=== PATIENT | female | born 1960 | race Caucasian/White ===

== ENCOUNTER 2020-10-29 23:15 | Emergency (ER) | payer MEDICARE, OTHER ==
[~2020-10-29 23:15] MED LIST: SYNTHROID100 MCG PO
[2020-10-30] MEDS ORDERED: HYDROCODON-ACE1 EAC4 PO (01:06)
== END 2020-10-30 01:30 | disposition home or self-care (01) ==
LOC: ER1 23:15
DX: S42.021A Displaced fracture of shaft of right clavicle, initial encounter for closed fracture (principal); F17.210 Nicotine dependence, cigarettes, uncomplicated; Z85.118 Personal history of other malignant neoplasm of bronchus and lung; W06.XXXA Fall from bed, initial encounter; Y92.009 Unspecified place in unspecified non-institutional (private) residence as the place of occurrence of the external cause
CPT/HCPCS: 73030; 99283

== ENCOUNTER → 2021-06-16 | Outpatient (CLI) | payer MEDICARE, OTHER ==
[~2021-06-16] VITALS: Ht 172.7 cm; Wt 75.3 kg
[~2021-06-16] MED LIST changes: +HYDROCODON-ACE1 EAC4 PO
== END ==
LOC: OPSV 08:32
DX: G70.80 Lambert-Eaton syndrome, unspecified (principal)
CPT/HCPCS: 96365; 96366; 96375; J1568; J2920

== ENCOUNTER → 2021-06-17 | Outpatient (CLI) | payer MEDICARE, OTHER ==
[~2021-06-17] VITALS: Ht 172.7 cm; Wt 75.3 kg
== END ==
LOC: OPSV 08:11
DX: G70.80 Lambert-Eaton syndrome, unspecified (principal)
CPT/HCPCS: 96365; 96366; J1568; J2920

== ENCOUNTER → 2021-06-18 | Outpatient (CLI) | payer MEDICARE, OTHER ==
[~2021-06-18] VITALS: Ht 172.7 cm; Wt 75.3 kg
== END ==
LOC: OPSV 07:39
DX: G70.80 Lambert-Eaton syndrome, unspecified (principal)
CPT/HCPCS: 96365; 96366; 96375; J1568; J2920

== ENCOUNTER → 2021-06-19 | Outpatient (CLI) | payer MEDICARE, OTHER ==
[~2021-06-19] VITALS: Ht 172.7 cm; Wt 75.3 kg
== END ==
LOC: OPSV 08:03
DX: G70.80 Lambert-Eaton syndrome, unspecified (principal)
CPT/HCPCS: 36415; 96365; 96366; 96375; J1568; J2920

== ENCOUNTER → 2021-06-22 | Outpatient (CLI) | payer MEDICARE, OTHER | LOC: OPSV 09:23 | DX: G70.80 Lambert-Eaton syndrome, unspecified (principal) | CPT/HCPCS: 96365; 96366; 96375; J1568; J2920 ==

== ENCOUNTER → 2021-11-02 | Outpatient (CLI) | payer MEDICARE, OTHER ==
[~2021-11-02] VITALS: Ht 167.6 cm; Wt 68.9 kg
== END ==
LOC: OPSV 10:00
DX: G70.80 Lambert-Eaton syndrome, unspecified (principal)
CPT/HCPCS: 96361; 96365; 96366; J1568; J1568-JG; J2920

== ENCOUNTER → 2021-11-03 | Outpatient (CLI) | payer MEDICARE, OTHER ==
[~2021-11-03] VITALS: Ht 165.1 cm; Wt 69.9 kg
== END ==
LOC: OPSV 10:00
DX: G70.80 Lambert-Eaton syndrome, unspecified (principal)
CPT/HCPCS: 96361; 96365; 96366; 96375; J1568; J2920; J7050

== ENCOUNTER → 2021-11-19 | Outpatient (CLI) | payer MEDICARE, OTHER ==
[~2021-11-19] MED LIST changes: +ADULT LOW DOSE81 MG PO; +LEVOTHYROXINE150 MCG PO; +METOPROLOL SUCC25 MG PO; +[UNRECOGNIZED DRUG - OTHER] PO
== END ==
LOC: RAD 08:54
DX: G70.80 Lambert-Eaton syndrome, unspecified (principal); R13.10 Dysphagia, unspecified
CPT/HCPCS: 74230; 92611-GN

== ENCOUNTER 2021-11-24 01:00 | Inpatient (IN) | payer MEDICARE, OTHER ==
[~2021-11-24] VITALS: Ht 167.6 cm; Wt 74.5 kg
[~2021-11-24 01:00] MED LIST changes: -ADULT LOW DOSE81 MG PO; -LEVOTHYROXINE150 MCG PO; -METOPROLOL SUCC25 MG PO; -[UNRECOGNIZED DRUG - OTHER] PO
[2021-11-24 01:55] LABS: HEMOGLOBIN 13.3 gm/dl (12.3-15.3); RED BLOOD COUNT 4.35 M/UL (4.00-5.10); WHITE BLOOD COUNT 6.6 K/UL (4.5-11.0)
[2021-11-24 02:08] LABS: BUN/CREATININE RATIO 9 (0-10)
[2021-11-24] MEDS ORDERED: ADULT LOW DOSE81 MG PO (10:11)
[2021-11-24] MEDS ORDERED: LEVOTHYROXINE150 MCG PO (10:11)
[2021-11-24] MEDS ORDERED: METOPROLOL SUCC25 MG PO (10:12)
[2021-11-24] MEDS ORDERED: [UNRECOGNIZED DRUG - OTHER] PO (10:14)
[2021-11-25 03:17] LABS: HEMOGLOBIN 11.6 gm/dl (12.3-15.3); WHITE BLOOD COUNT 6.8 K/UL (4.5-11.0)
[2021-11-25 03:28] LABS: RED BLOOD COUNT 3.88 M/UL (4.00-5.10)
[2021-11-25 04:08] LABS: BUN/CREATININE RATIO 14 (0-10)
[2021-11-26 07:24] LABS: BUN/CREATININE RATIO 17 (0-10)
[2021-11-27 02:59] LABS: BUN/CREATININE RATIO 27 (0-10)
[2021-11-27 11:45] LABS: BUN/CREATININE RATIO 37 (0-10)
[2021-11-28 03:09] LABS: HEMOGLOBIN 11.9 gm/dl (12.3-15.3); RED BLOOD COUNT 3.96 M/UL (4.00-5.10); WHITE BLOOD COUNT 9.9 K/UL (4.5-11.0)
[2021-11-28 03:34] LABS: BUN/CREATININE RATIO 42 (0-10)
[2021-11-28 10:00] LABS: BUN/CREATININE RATIO 44 (0-10)
[2021-11-29 03:11] LABS: HEMOGLOBIN 12.7 gm/dl (12.3-15.3); RED BLOOD COUNT 4.13 M/UL (4.00-5.10)
[2021-11-29 03:40] LABS: BUN/CREATININE RATIO 35 (0-10)
[2021-11-30 03:21] LABS: HEMOGLOBIN 11.9 gm/dl (12.3-15.3); RED BLOOD COUNT 3.98 M/UL (4.00-5.10); WHITE BLOOD COUNT 7.6 K/UL (4.5-11.0)
[2021-11-30 03:52] LABS: BUN/CREATININE RATIO 41 (0-10)
[2021-11-30 10:26] LABS: BUN/CREATININE RATIO 36 (0-10)
[2021-12-01 04:26] LABS: HEMOGLOBIN 13.2 gm/dl (12.3-15.3); WHITE BLOOD COUNT 6.8 K/UL (4.5-11.0)
[2021-12-01 04:27] LABS: RED BLOOD COUNT 4.39 M/UL (4.00-5.10)
[2021-12-01 04:51] LABS: BUN/CREATININE RATIO 51 (0-10)
[2021-12-01] MEDS ORDERED: COZAAR 25MG TAB25 MG PO (09:35)
[2021-12-01] MEDS ORDERED: MEDROL DOSEPAK 24 MG PO (09:35)
[2021-12-01] MEDS ORDERED: METOPROLOL SUCC50 MG PO (09:35)
[2021-12-01] MEDS ORDERED: FUROSEMIDE20 MG PO (09:35)
[2021-12-01] MEDS ORDERED: IPRAT-ALBUT 0.5-3 ML NEB (09:35)
[2021-12-01] MEDS ORDERED: AMOX TR-K CLV1 EAC4 PO (09:35)
[2021-12-01] MEDS ORDERED: PROAIR HFA8.5 GM INH (09:35)
[2021-12-01] MEDS ORDERED: ALDACTONE 25MG25 MG PO (09:35)
[2021-12-01] MEDS ORDERED: DIGOXIN250 MCG PO (09:35)
[2021-12-01] MEDS ORDERED: PULMICORT0.5 MG/2 M INH (09:52)
== END 2021-12-01 12:23 | disposition home or self-care (01) | DRG 871 ==
LOC: ER1 01:00 → M/S 03:52 → CDU 03:52 → M/S 15:29
PROVIDERS: Family Medicine; Internal Medicine; Internal Medicine Cardiovascular Disease; Nurse Practitioner; ADMIT Internal Medicine
PROC: B24BZZZ Ultrasonography of Heart with Aorta (ICD-10-PCS; principal; 2021-11-24)
PROC: 4A023N7 Measurement of Cardiac Sampling and Pressure, Left Heart, Percutaneous Approach (ICD-10-PCS; 2021-11-30)
PROC: B2111ZZ Fluoroscopy of Multiple Coronary Arteries using Low Osmolar Contrast (ICD-10-PCS; 2021-11-30)
DX: A41.9 Sepsis, unspecified organism (principal); Z20.822 Contact with and (suspected) exposure to COVID-19; I50.43 Acute on chronic combined systolic (congestive) and diastolic (congestive) heart failure; J96.21 Acute and chronic respiratory failure with hypoxia; J18.9 Pneumonia, unspecified organism; J96.22 Acute and chronic respiratory failure with hypercapnia; G70.80 Lambert-Eaton syndrome, unspecified; J44.1 Chronic obstructive pulmonary disease with (acute) exacerbation; C79.70 Secondary malignant neoplasm of unspecified adrenal gland; I42.8 Other cardiomyopathies; I31.3 Pericardial effusion (noninflammatory); I08.1 Rheumatic disorders of both mitral and tricuspid valves; I27.20 Pulmonary hypertension, unspecified; R59.1 Generalized enlarged lymph nodes; E03.9 Hypothyroidism, unspecified; E87.6 Hypokalemia; I25.10 Atherosclerotic heart disease of native coronary artery without angina pectoris; R53.81 Other malaise; F17.210 Nicotine dependence, cigarettes, uncomplicated; Z85.118 Personal history of other malignant neoplasm of bronchus and lung; Z79.01 Long term (current) use of anticoagulants; Z79.82 Long term (current) use of aspirin; Z99.81 Dependence on supplemental oxygen; Z98.890 Other specified postprocedural states; Z98.51 Tubal ligation status; Z88.1 Allergy status to other antibiotic agents; Z82.49 Family history of ischemic heart disease and other diseases of the circulatory system; Z74.01 Bed confinement status
CPT/HCPCS: ECHO; 0240U; 36415; 36600; 71045; 71275; 80048; 80053; 81001; 82550; 82553; 82803; 83605; 83735; 83880; 84100; 84132; 84484; 85025; 85027; 85379; 85610; 85730; 87040; 87070; 87086; 87205; 93005; 93306; 94640; 94664; 94760; 96372; 96374; 96375; 96376; 99152; 99285; C1769; C1887; C1894; J0461; J1644; J1650; J1940; J2250; J2370; J2543; J2920; J3010; J7040; Q9967

== ENCOUNTER → 2021-12-28 | Outpatient (CLI) | payer MEDICARE, OTHER ==
[~2021-12-28] MED LIST changes: +ADULT LOW DOSE81 MG PO; +ALDACTONE 25MG25 MG PO; +AMOX TR-K CLV1 EAC4 PO; +COZAAR 25MG TAB25 MG PO; +DIGOXIN250 MCG PO; +FUROSEMIDE20 MG PO; +IPRAT-ALBUT 0.5-3 ML NEB; +LEVOTHYROXINE150 MCG PO; +MEDROL DOSEPAK 24 MG PO; +METOPROLOL SUCC25 MG PO; +METOPROLOL SUCC50 MG PO; +PROAIR HFA8.5 GM INH; +PULMICORT0.5 MG/2 M INH; +[UNRECOGNIZED DRUG - OTHER] PO
== END ==
LOC: HEART 5 13:06
DX: R06.00 Dyspnea, unspecified (principal)
CPT/HCPCS: 94060; 94729

== ENCOUNTER 2022-01-06 09:33 | Inpatient (IN) | payer MEDICARE, OTHER ==
[~2022-01-06] VITALS: Ht 167.6 cm; Wt 69.9 kg
[2022-01-06 10:18] LABS: HEMOGLOBIN 13.3 gm/dl (12.3-15.3); RED BLOOD COUNT 4.43 M/UL (4.00-5.10); WHITE BLOOD COUNT 5.9 K/UL (4.5-11.0)
[2022-01-06 10:49] LABS: BUN/CREATININE RATIO 8 (0-10)
[2022-01-06] MEDS ORDERED: ATORVASTATIN CA20 MG PO (12:58)
[2022-01-06] MEDS ORDERED: SYMBICORT 16010.2 GM INH (13:00)
[2022-01-06] MEDS ORDERED: METOPROLOL SUC100 MG PO (13:02)
[2022-01-07 06:30] LABS: RED BLOOD COUNT 4.08 M/UL (4.00-5.10); WHITE BLOOD COUNT 6.6 K/UL (4.5-11.0)
[2022-01-07 06:48] LABS: BUN/CREATININE RATIO 22 (0-10)
[2022-01-08 06:57] LABS: HEMOGLOBIN 11.7 gm/dl (12.3-15.3); RED BLOOD COUNT 3.89 M/UL (4.00-5.10)
[2022-01-08 07:00] LABS: WHITE BLOOD COUNT 8.9 K/UL (4.5-11.0)
[2022-01-08 07:34] LABS: BUN/CREATININE RATIO 21 (0-10)
[2022-01-09 06:51] LABS: HEMOGLOBIN 11.9 gm/dl (12.3-15.3); RED BLOOD COUNT 3.96 M/UL (4.00-5.10)
[2022-01-09 06:52] LABS: WHITE BLOOD COUNT 6.3 K/UL (4.5-11.0)
[2022-01-09 07:11] LABS: BUN/CREATININE RATIO 17 (0-10)
[2022-01-10 07:37] LABS: HEMOGLOBIN 11.7 gm/dl (12.3-15.3); RED BLOOD COUNT 4.02 M/UL (4.00-5.10)
[2022-01-10 07:42] LABS: WHITE BLOOD COUNT 4.6 K/UL (4.5-11.0)
[2022-01-10 08:38] LABS: BUN/CREATININE RATIO 25 (0-10)
[2022-01-11] MEDS ORDERED: HUMIBID LA TAB600 MG PO (17:11)
[2022-01-11] MEDS ORDERED: PROTONIX 40 MG40 M1 PO (17:11)
[2022-01-11] MEDS ORDERED: KLOR-CON M2020 MEQ PO (17:11)
[2022-01-11] MEDS ORDERED: DEXAMETHASONE6 MG PO (17:11)
[2022-01-11] MEDS ORDERED: OMNICEF 300 MG300 MG PO (17:13)
== END 2022-01-11 17:20 | disposition home or self-care (01) | DRG 177 ==
LOC: ER1 09:33 → CDU 11:08 → MED SURG 4 11:08
PROVIDERS: Emergency Medicine; Physician Assistant Medical; ADMIT Internal Medicine
PROC: 8E0ZXY6 Isolation (ICD-10-PCS; principal; 2022-01-06)
PROC: XW033E5 Introduction of Remdesivir Anti-infective into Peripheral Vein, Percutaneous Approach, New Technology Group 5 (ICD-10-PCS; 2022-01-06)
PROC: 3E0333Z Introduction of Anti-inflammatory into Peripheral Vein, Percutaneous Approach (ICD-10-PCS; 2022-01-06)
PROC: 5A0935A Assistance with Respiratory Ventilation, Less than 24 Consecutive Hours, High Flow/Velocity Cannula (ICD-10-PCS; 2022-01-06)
DX: U07.1 COVID-19 (principal); J15.9 Unspecified bacterial pneumonia; J96.21 Acute and chronic respiratory failure with hypoxia; C79.70 Secondary malignant neoplasm of unspecified adrenal gland; G70.80 Lambert-Eaton syndrome, unspecified; I50.22 Chronic systolic (congestive) heart failure; J44.1 Chronic obstructive pulmonary disease with (acute) exacerbation; I11.0 Hypertensive heart disease with heart failure; I25.10 Atherosclerotic heart disease of native coronary artery without angina pectoris; R53.81 Other malaise; E03.9 Hypothyroidism, unspecified; F17.210 Nicotine dependence, cigarettes, uncomplicated; Z85.828 Personal history of other malignant neoplasm of skin; Z98.51 Tubal ligation status; Z98.890 Other specified postprocedural states; Z79.82 Long term (current) use of aspirin; Z82.0 Family history of epilepsy and other diseases of the nervous system; Z88.1 Allergy status to other antibiotic agents; Z95.0 Presence of cardiac pacemaker
CPT/HCPCS: 0240U; 36415; 36600; 71045; 80048; 80053; 81001; 82550; 82553; 82803; 83605; 83690; 83735; 83880; 84484; 85025; 85027; 85379; 87040; 93005; 94640; 94664; 94760; 96361; 96374; 96375; 99285; J0248; J0692; J0696; J1100; J1650; J2930; J7030